=== PATIENT | male | born 1985 | race Caucasian/White ===

== ENCOUNTER 2017-02-17 13:46 | Outpatient (CLI) | payer OTHER ==
--- NOTE | 2017-02-17 15:53 | MRI ---
HISTORY: Patient complaining of right sided tremor, neck pain. Multiplanar and multisequence noncontrast enhanced MRI images cervical spine obtained. MRI images demonstrates the spinal cord to be unremarkable. No evidence of cord masses or lesions see n. Disc spaces are well maintained. No significant evidence of disc herniations, spinal stenosis or neur al foraminal narrowing is seen. IMPRESSION: Normal MRI of cervical spine. POS: [facility]
--- NOTE | 2017-02-17 15:58 | MRI ---
PRE AND POSTCONTRAST ENHANCED MRI IMAGES OF THE BRAIN 02/17/17 HISTORY: Essential tremor, G25.0. Multiplanar and multisequential pre and postcontrast enhanced MRI images of the brain obtained. There is extensive paranasal sinus disease with bilateral frontal sinus mucosal thickening, left grea ter than right, bilateral ethmoid sinus mucosal thickening, as well as extensive opacification of the right sphenoid sinus. There is moderate to significant bilateral maxillary sinus mucosal thickening. The patient has had previous bilateral uncinectomies. The brain demonstrates an area of signal abnormality on the T2 weighted sequences with area of enhanc ement in the posterior right frontal lobe region. This is compatible with a developmental venous anom zunilda. There is small areas of adjacent gliosis seen along the course of the draining vein. IMPRESSION: 1. Right frontal developmental venous anomaly. 2. Extensive paranasal sinus disease. POS: [facility]
== END 2017-02-17 13:47 | disposition home or self-care (01) ==
LOC: MRI 13:46
PROVIDERS: ATTEND Psychiatry & Neurology Neurology
DX: G25.0 Essential tremor (principal); Q28.3 Other malformations of cerebral vessels; J32.9 Chronic sinusitis, unspecified
CPT/HCPCS: 70553; 72141

== ENCOUNTER 2017-03-29 08:30 | Emergency (ER) | payer OTHER ==
[2017-03-29 09:02] LABS: #Basophils 0.1 thou/uL (0.0-0.2); #Eosinphils 0.4 thou/uL (0.0-0.7); #Lymphocytes 1.5 thou/uL (1.20-3.40); #Monocytes 0.7 thou/uL (0.11-0.59); #Neutrophils 6.7 thou/uL (1.40-6.50); %Basophils 0.9 % (0.0-1.0); %Eosinophils 4.6 % (0.0-10.0); %Lymphocytes 16.1 % (21.0-51.0); %Monocytes 7.4 % (0.0-10.0); %Neutrophils 70.9 % (42.0-75.0); Mean Corpuscular HGB CONC 33.2 g/dL (32.0-36.0); Mean Corpuscular Hemoglobin 30.2 pg (27.0-31.0); Mean Corpuscular Volume 90.8 fl (80.0-94.0); Mean Platelet Volume 10.2 fL (7.4-10.4); Platelet Count 156 thou/uL (130-400); RBC Distribution Width 11.5 % (11.5-14.5); Red Blood Cell (RBC) Count 4.97 mill/uL (4.70-6.10); White Blood Cell (WBC) Count 9.4 thou/uL (4.8-10.8)
[2017-03-29 09:09] LABS: PTT 28.5 SEC (22.9-36.1); Prothrombin Time 13.3 SEC (12.0-14.7)
--- NOTE | 2017-03-29 09:24 | RAD ---
SINGLE VIEW OF CHEST: Date: 03/29/17 COMPARISON: None. HISTORY: Shortness of breath and dyspnea. FINDINGS: Single view of the chest shows a normal sized cardiomediastinal silhouette. There is no evidence of c onsolidation, mass, or pleural effusion. The bones are unremarkable. IMPRESSION: No evidence of acute cardiopulmonary disease. POS: [facility]
[2017-03-29] MEDS ORDERED: Ketorolac Tromethamine 30 MG/ML VIAL ONE (09:30)
--- NOTE | 2017-03-29 09:40 | CT ---
CTA OF THE CHEST WITH CONTRAST PERFORMED WITH EMBOLISM PROTOCOL: Comparison: None. History: Shortness of breath, arm tingling. Technique: Multiple contiguous axial images were obtained in a CTA of the chest with contrast per pul monary embolism protocol. 3D oblique MIP reformats and direct coronal reformats were performed. FINDINGS: The pulmonary arteries have all opacified without filling defects to suggest pulmonary emboli. The he art is normal in size without focal cardiac abnormality. No hilar or mediastinal lymphadenopathy are seen. No focal infiltrates or suspicious pulmonary nodules are seen. No pneumothorax or pleural effusion ar e present. The osseous structures, visualized subdiaphragmatic structures and chest wall soft tissues are unrema rkable. IMPRESSION: No evidence of pulmonary thromboembolism. POS: [facility]
[2017-03-29 09:59] LABS: CKMB 0.3 ng/mL (0-6.6); Troponin I Less than 0.010 ng/mL (< 0.028)
[2017-03-29 10:03] LABS: ALT (SGPT) 15 U/L (8-55); AST (SGOT) 27 U/L (5-34); Albumin 4.5 g/dL (3.5-5.0); Alkaline Phosphatase 59 U/L (40-150); Anion Gap 14 mmol/L (10-20); BUN (Urea Nitrogen) 11 mg/dL (8.9-20.6); Bilirubin, Total 0.9 mg/dL (0.2-1.2); Calc. Creatinine Clearance 0 mL/min (70-130); Calcium 9.8 mg/dL (7.8-10.44); Carbon Dioxide 26 mmol/L (22-29); Chloride 100 mmol/L (98-107); Estimated GFR-MDRD 84; Globulin 3.5 g/dL (2.4-3.5); Glucose 83 mg/dL (70-105); Potassium 4.4 mmol/L (3.5-5.1); Sodium 136 mmol/L (136-145)
[2017-03-29] MEDS ORDERED: ISOVUE-370 76%-LOCM 1 ML ONE (13:33)
--- NOTE | 2017-04-14 15:12 | EKG ---
Test Reason : SOB Blood Pressure : / mmHG Vent. Rate : 095 BPM Atrial Rate : 095 BPM P-R Int : 120 ms QRS Dur : 112 ms QT Int : 342 ms P-R-T Axes : 045 054 036 degrees QTc Int : 429 ms Normal sinus rhythm Incomplete right bundle branch block Borderline ECG Confirmed by ROCIO MORTON ([id number]), manager editorial AMY GUTHRIE ([id number]) on 04/14/2017 3:12:14 PM Referred By: Confirmed By:ROCIO MORTON
== END 2017-03-29 10:48 | disposition home or self-care (01) ==
LOC: ERS 08:30
DX: R06.00 Dyspnea, unspecified (principal); F43.10 Post-traumatic stress disorder, unspecified; F17.220 Nicotine dependence, chewing tobacco, uncomplicated; Z79.899 Other long term (current) drug therapy
CPT/HCPCS: 71045; 71275; 80053; 82553; 84484; 85025; 85610; 85730; 93005; 94760; 96361; 96374; 96375; J1885; J2270